=== PATIENT | female | born 1960 | race Caucasian/White ===

== ENCOUNTER 2018-05-06 09:20 | Inpatient (IN) | payer MEDICARE, MEDICAID ==
[~2018-05-06] VITALS: Ht 160 cm; Wt 119.1 kg
[~2018-05-06 09:20] MED LIST: B-COTAB59 OR; CITA-77 PO; GABA300C10 PO; LISI10TA6 PO; MELO1TAB73 PO; MULTTAB OR; TIZA2CAP7 PO; TRAM50TA2 PO; ZOLP-158 PO
[2018-05-06] MEDS ORDERED: ceFAZolin 1GM/50ML 100 ML IV ONE (09:37)
[2018-05-06] MEDS ORDERED: ACETAMINOPHEN IV 100 ML IV ONE (09:37)
[2018-05-06] MEDS ORDERED: CELECOXIB 100 MG CAP PO ONE (09:45)
[2018-05-06] MEDS ORDERED: PREGABALIN CAPSULE 75 MG CAP PO ONE (09:45)
[2018-05-06] MEDS ORDERED: ceFAZolin 1GM 2 GM in D5W 5% 100 ML IV ONE (09:45)
[2018-05-06] MEDS ORDERED: BUPIVACAINE W/ EPINEPH 0.25% INJ 50ML MDV ONE (10:52)
[2018-05-06] MEDS ORDERED: TRANEXAMIC ACID 10 ML ONE ×2 (10:52→12:52)
[2018-05-06] MEDS ORDERED: MORPHINE SULF(PF) 0.5MG/ML 10ML VIAL ONE ×2 (10:53→11:10)
[2018-05-06] MEDS ORDERED: KETOROLAC TROMETH 30 MG/ML 1ML VIAL ONE (10:53)
[2018-05-06] MEDS ORDERED: LIDOCAINE W/ EPINEPHRINE 2% INJ 20ML VIAL ONE (11:05)
[2018-05-06] MEDS ORDERED: BUPIVACAINE HCL 50 ML ONE (11:05)
[2018-05-06] MEDS ORDERED: MIDAZOLAM HCL 1MG/1ML-2 ML VIAL ONE ×5 (11:10→14:19)
[2018-05-06] MEDS ORDERED: CELECOXIB 100 MG CAP ONE (11:30)
[2018-05-06] MEDS ORDERED: diphenhdrAMINE HCL 50 MG/1 ML VL IV PRN (12:30)
[2018-05-06] MEDS ORDERED: ONDANSETRON HCL 4 MG/2 ML VIAL IV PRN ×2 (12:30→15:30)
[2018-05-06] MEDS ORDERED: NALOXONE HCL 0.4 MG/ML VIAL IV PRN ×2 (12:30)
[2018-05-06] MEDS ORDERED: MORPHINE SULFATE 4 MG/ML SYR/VIAL IV PRN ×2 (12:30→15:30)
[2018-05-06] MEDS ORDERED: ONDANSETRON HCL 4 MG/2 ML VIAL IV ONE (12:30)
[2018-05-06] MEDS ORDERED: ePHEDrine SULFATE 50 MG/ML AMP IV PRN (12:30)
[2018-05-06] MEDS ORDERED: KETOROLAC TROMETH 30 MG/ML 1ML VIAL IV PRN (12:30)
[2018-05-06] MEDS ORDERED: VANCOMYCIN HCL 1000 MG VL ONE (12:40)
[2018-05-06] MEDS ORDERED: ePHEDrine SULFATE 50 MG/ML AMP ONE (12:59)
[2018-05-06] MEDS ORDERED: METOCLOPRAMIDE HCL 5MG/ml INJ 2ml VIAL ONE (13:11)
[2018-05-06] MEDS ORDERED: PROPOFOL 10 MG/ML 20 ML IV ONE (14:04)
[2018-05-06] MEDS ORDERED: KETAMINE HCL 1 ML ONE (14:18)
[2018-05-06] MEDS ORDERED: HYDROcodone-ACET 5/325MG TAB PO PRN (15:30)
[2018-05-06] MEDS ORDERED: traMADol HCL 50 MG TAB PO PRN (15:30)
[2018-05-06] MEDS ORDERED: BISACODYL 5 MG EC TAB PO PRN (15:30)
[2018-05-06] MEDS ORDERED: MORPHINE SULF INJ 2 MG/ML SYRINGE 1ML IV PRN (15:30)
[2018-05-06] MEDS ORDERED: NITROGLYCERIN 0.4 MG SL TAB SL PRN (15:30)
[2018-05-06] MEDS ORDERED: ACETAMINOPHEN 325 MG TAB PO PRN (15:30)
[2018-05-06 18:33] VITALS: BP 117/48
[2018-05-06] MEDS: LACTATED RINGER'S 1,000 ML IV SCH (20:00)
[2018-05-06] MEDS: METOCLOPRAMIDE HCL 5MG/ml INJ 2ml VIAL IV PRN (20:05)
[2018-05-06] MEDS: traMADol HCL 50 MG TAB PO PRN (20:05)
[2018-05-06 21:56] VITALS: BP 107/62
[2018-05-06] MEDS: DOCUSATE SOD 100 MG CAP PO SCH (22:22)
[2018-05-06] MEDS: GABAPENTIN 300 MG CAP PO SCH (22:22)
[2018-05-06] MEDS: TIZANIDINE 2 MG PO SCH (22:41)
[2018-05-06] MEDS: ceFAZolin 1GM 2 GM in D5W 5% 100 ML IV SCH (23:00)
[2018-05-07] MEDS: METOCLOPRAMIDE HCL 5MG/ml INJ 2ml VIAL IV PRN (03:01)
[2018-05-07] MEDS: traMADol HCL 50 MG TAB PO PRN ×2 (05:15→21:49)
[2018-05-07 05:32] VITALS: BP 118/71
[2018-05-07] MEDS: ceFAZolin 1GM 2 GM in D5W 5% 100 ML IV SCH ×2 (06:53→15:16)
[2018-05-07 08:00] VITALS: BP 124/60
[2018-05-07 08:59] LABS: Hematocrit 34.9 % (36.0-46.0); Hemoglobin 11.9 g/dL (12.2-16.2)
[2018-05-07] MEDS: KETOROLAC TROMETH 30 MG/ML 1ML VIAL IV PRN ×2 (09:22→16:40)
[2018-05-07 09:31] LABS: Albumin 2.7 g/dL (3.4-5.0); BUN/Creatinine Ratio 13.5; Bilirubin, Total 0.6 mg/dL (0.2-1.0); Calcium 7.8 mg/dL (8.5-10.1); Potassium 3.8 mmol/L (3.5-5.1); Total Protein 6.1 g/dL (6.4-8.2)
[2018-05-07] MEDS: MULTIPLE VITAMINS W/ MINERALS TAB PO SCH (11:02)
[2018-05-07] MEDS: DOCUSATE SOD 100 MG CAP PO SCH ×2 (11:02→21:48)
[2018-05-07] MEDS: ENOXAPARIN SOD 40 MG/0.4 ML SYRINGE SC SCH (11:02)
[2018-05-07] MEDS: CITALOPRAM HYDROBR 20 MG TAB PO SCH (11:02)
[2018-05-07] MEDS: GABAPENTIN 300 MG CAP PO SCH ×2 (11:02→21:49)
[2018-05-07] MEDS: B-COMPLEX W/ C & FOLIC ACID(NEPHROVITE TAB) PO SCH (11:02)
[2018-05-07] MEDS: LISINOPRIL 10 MG TAB PO SCH (11:03)
[2018-05-07] MEDS: LACTATED RINGER'S 1,000 ML IV SCH ×3 (11:06→21:16)
[2018-05-07 13:00] VITALS: BP 123/56
[2018-05-07 17:00] VITALS: BP 112/73
[2018-05-07 21:48] VITALS: BP 129/71
[2018-05-07] MEDS: TIZANIDINE 2 MG PO SCH (21:49)
[2018-05-08] MEDS: KETOROLAC TROMETH 30 MG/ML 1ML VIAL IV PRN
[2018-05-08 04:48] VITALS: BP 107/55
[2018-05-08] MEDS: LACTATED RINGER'S 1,000 ML IV SCH (07:16)
[2018-05-08 08:00] VITALS: BP 130/75
[2018-05-08 09:00] VITALS: BP 130/75
[2018-05-08] MEDS: DOCUSATE SOD 100 MG CAP PO SCH ×2 (10:18→20:32)
[2018-05-08] MEDS: ENOXAPARIN SOD 40 MG/0.4 ML SYRINGE SC SCH (10:18)
[2018-05-08] MEDS: B-COMPLEX W/ C & FOLIC ACID(NEPHROVITE TAB) PO SCH (10:18)
[2018-05-08] MEDS: GABAPENTIN 300 MG CAP PO SCH ×2 (10:18→20:32)
[2018-05-08] MEDS: LISINOPRIL 10 MG TAB PO SCH (10:19)
[2018-05-08] MEDS: MULTIPLE VITAMINS W/ MINERALS TAB PO SCH (10:19)
[2018-05-08] MEDS: CITALOPRAM HYDROBR 20 MG TAB PO SCH (10:19)
[2018-05-08] MEDS: traMADol HCL 50 MG TAB PO PRN ×2 (11:25→20:33)
[2018-05-08 12:50] VITALS: BP 130/71
[2018-05-08 17:13] VITALS: BP 130/83
[2018-05-08] MEDS: TIZANIDINE 2 MG PO SCH (20:33)
[2018-05-08 22:00] VITALS: BP 128/82
[2018-05-09 04:59] VITALS: BP 114/65
[2018-05-09] MEDS: ENOXAPARIN SOD 40 MG/0.4 ML SYRINGE SC SCH (09:36)
[2018-05-09] MEDS: traMADol HCL 50 MG TAB PO PRN (09:37)
[2018-05-09] MEDS: GABAPENTIN 300 MG CAP PO SCH (09:37)
[2018-05-09] MEDS: CITALOPRAM HYDROBR 20 MG TAB PO SCH (09:37)
[2018-05-09] MEDS: MULTIPLE VITAMINS W/ MINERALS TAB PO SCH (09:37)
[2018-05-09] MEDS: B-COMPLEX W/ C & FOLIC ACID(NEPHROVITE TAB) PO SCH (09:37)
[2018-05-09] MEDS: LISINOPRIL 10 MG TAB PO SCH (09:38)
[2018-05-09] MEDS: DOCUSATE SOD 100 MG CAP PO SCH (09:39)
[2018-05-09 09:40] VITALS: BP 111/74
[2018-05-09 10:52] VITALS: BP 111/74
[2018-05-09 12:10] VITALS: BP 135/77
== END 2018-05-09 13:00 | disposition home health service (06) | DRG 470 ==
LOC: SUR 09:20 → CENTRAL 09:21
PROVIDERS: ADMIT Orthopaedic Surgery Adult Reconstructive Orthopaedic Surgery; ATTEND Orthopaedic Surgery Adult Reconstructive Orthopaedic Surgery
PROC: 0SRB0JA Replacement of Left Hip Joint with Synthetic Substitute, Uncemented, Open Approach (ICD-10-PCS; principal; 2018-05-06 11:48)
DX: M16.11 Unilateral primary osteoarthritis, right hip (principal); Z68.42 Body mass index [BMI] 45.0-49.9, adult; E66.01 Morbid (severe) obesity due to excess calories; I11.9 Hypertensive heart disease without heart failure; M79.7 Fibromyalgia; K21.9 Gastro-esophageal reflux disease without esophagitis; G62.9 Polyneuropathy, unspecified; F32.9 Major depressive disorder, single episode, unspecified; F41.9 Anxiety disorder, unspecified; Z90.710 Acquired absence of both cervix and uterus; Z87.891 Personal history of nicotine dependence; Z82.49 Family history of ischemic heart disease and other diseases of the circulatory system; Z88.5 Allergy status to narcotic agent; Z88.1 Allergy status to other antibiotic agents
CPT/HCPCS: 36415; 72170; 73502; 80053; 85014; 85018; 86850; 86900; 86901; 97110; 97116; 97163; 97530; A4565; J0131; J0690; J1885; J2250; J2405; J2704; J3490; J7060